=== PATIENT | male | born 1990 | race Two or more races ===

== ENCOUNTER 2017-10-11 | Emergency (ER) | payer SELFPAY | END 2017-10-11 13:22 | disposition home or self-care (01) | DX: F10.920 Alcohol use, unspecified with intoxication, uncomplicated (principal); R45.851 Suicidal ideations; S00.81XA Abrasion of other part of head, initial encounter; F43.21 Adjustment disorder with depressed mood; X83.8XXA Intentional self-harm by other specified means, initial encounter | CPT/HCPCS: 80305; G0480 ==

== ENCOUNTER 2018-04-13 16:41 | Emergency (ER) | payer OTHER ==
--- NOTE | 2018-04-13 17:05 | EDPHY ---
H & P Stated Complaint: Abd pain Time Seen by Provider: 04/13/18 17:04 HPI/ROS: CHIEF COMPLAINT: Abdominal pain, vomiting. HISTORY OF PRESENT ILLNESS: The patient is a 27 y/o male complaining of persistent abdominal pain and vomiting for the last twenty four hours. He was admitted to [facility] yesterday for the same symptoms and had temporary improvement in symptoms after IV fluids and antiemetics. However, shortly after discharge today his symptoms returned. 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 He is typically healthy and has not had symptoms like this previously. No fever, diarrhea, recent illness, recent trauma. He is a regular marijuana smoker but has never had vomiting like this before. REVIEW OF SYSTEMS: A ten system review of systems was performed and is negative with the exception of the items mentioned in the HPI. Past medical history: Denies Past surgical history: Denies Family history: Noncontributory. Social history: Exchange student at . Lives in [place]. General Appearance: Alert. Vital signs reviewed. Eyes: Pupils equal and round, no conjunctival injection, no discharge. Anicteric. ENT, Mouth: Mucous membranes are moist, no oropharyngeal erythema or edema. Neck: No lymphadenopathy, supple. Respiratory: Lungs are clear to auscultation; no wheezes, rales, or rhonchi. Cardiovascular: Regular rate and rhythm; no murmur, rub, or gallop. Gastrointestinal: Abdomen is soft and nontender, no masses or organomegaly. Skin: Warm and dry, no rashes on exposed skin, normal color. Back: Nontender to palpation over the thoracolumbar spine. No CVAT. Extremities: No lower extremity edema, no calf tenderness or swelling. Neurological: Alert and oriented. Moving all four extremities easily and equally. Psychiatric: Normal affect. - Medical/Surgical History Hx Asthma: No Hx Chronic Respiratory Disease: No Hx Diabetes: No Hx Cardiac Disease: No Hx Renal Disease: No Hx Cirrhosis: No Hx Alcoholism: No Hx HIV/AIDS: No Hx Splenectomy or Spleen Trauma: No Other PMH: DENIES - Social History Smoking Status: Never smoked Constitutional: Initial Vital Signs Temperature (C) 37.2 C 04/13/18 16:46 Heart Rate 67 04/13/18 16:46 Respiratory Rate 16 04/13/18 16:46 Blood Pressure 132/76 H 04/13/18 16:46 O2 Sat (%) 100 04/13/18 16:46 O2 Delivery Mode Room Air Allergies/Adverse Reactions: No Known Allergies Allergy (Unverified 04/13/18 16:46) Home Medications: Medication Instructions Recorded NK [No Known Home Meds] 10/11/17 Medical Decision Making ED Course/Re-evaluation: This is a healthy 27 y/o male who presents with a 2-day history of persistent vomiting and abdominal pain despite admission for this yesterday. His abdomen is benign. Plan for IV, labs, symptomatic management. 1L IV NS and 4mg IV Zofran ordered. 5:45 p.m.. Patient re-examined. He is resting comfortably. Abdomen remains soft and nontender. No further vomiting. 1829: Patient is now retching frequently and audibly. 2mg IV Haldol ordered. 1929: Reevaluated patient. He is sleeping comfortably. 2024: Reassessed patient. He is feeling significantly improved. Will attempt PO trial. PO trial successful. I suspect cyclic vomiting syndrome. Labs reviewed. Nothing to suggest pancreatitis,cholecystitis, appendicitis. Differential Diagnosis: I considered a differential diagnosis that includes but is not limited to cyclic vomiting syndrome, gastritis, gastroenteritis, pancreatitis, cholecystitis, and appendicitis. - Data Points Laboratory Results: Laboratory Results 04/13/18 17:30 04/13/18 17:30 Medications Given: Discontinued Medications Haloperidol Lactate (Haldol Injection) 2 mg IVP EDNOW ONE Stop: 04/13/18 18:38 Last Admin: 04/13/18 18:45 Dose: 2 mg Sodium Chloride (Ns) 1,000 mls @ 0 mls/hr IV EDNOW ONE; Wide Open PRN Reason: Protocol Stop: 04/13/18 17:17 Last Admin: 04/13/18 17:39 Dose: 1,000 mls Ondansetron HCl (Zofran) 4 mg IVP EDNOW ONE Stop: 04/13/18 17:17 Last Admin: 04/13/18 17:40 Dose: 4 mg Ondansetron HCl (Zofran Odt 4 Mg Prepack#2) 1 btl TAKEHOME EDNOW ONE Stop: 04/13/18 20:52 Last Admin: 04/13/18 21:05 Dose: 1 btl Departure - Departure Disposition: Home, Routine, Self-Care Clinical Impression: Vomiting Qualifiers: Vomiting type: cyclical vomiting Vomiting Intractability: non-intractable Nausea presence: with nausea Qualified Code(s): G43.A0 - Cyclical vomiting, not intractable Condition: Good Instructions: Ondansetron (By mouth), Acute Nausea and Vomiting (ED) Additional Instructions: Use Zofran as prescribed when needed for vomiting. Follow up with primary care provider to establish care locally and for unimproved symptoms over the next 2-3 days. Return to the ED for worsening of condition. Referrals: [facility] [Clinic] - As per Instructions Report Scribed for: Divina Lowe Report Scribed by: Stella Gomez Date of Report: 04/13/18 Time of Report: 17:32 Physician Review and Approval Statement: 04/13/18 17:04 Portions of this note were transcribed by the medical voucher clerk. I, Dr. Divina Lowe, personally performed the history, physical exam, and medical decision- making; and confirmed the accuracy of the information in the transcribed note.
[2018-04-13] MEDS ORDERED: NS 1,000 ML IV ONE (17:16)
[2018-04-13] MEDS ORDERED: ONDANSETRON 4 MG/2 ML VIAL IVP ONE (17:16)
[2018-04-13 18:26] LABS: PLATELET COUNT 213 10^3/uL (150-400)
[2018-04-13] MEDS ORDERED: HALOPERIDOL LACT 5 MG/ML INJ IVP ONE (18:37)
[2018-04-13] MEDS ORDERED: ONDANSETRON 4MG PREPACK#2 BTL TAKEHOME ONE (20:51)
[2018-04-13 21:09] VITALS: BP 117/62
== END 2018-04-13 21:08 | disposition home or self-care (01) ==
DX: G43.A0 Cyclical vomiting, in migraine, not intractable (principal); E86.9 Volume depletion, unspecified
CPT/HCPCS: 96374; J1630; J2405